=== PATIENT | female | born 1955 | race Caucasian/White ===

== ENCOUNTER → 2020-12-28 | Outpatient (CLI) | payer MEDICARE, BC | LOC: HEART 5 08:58 | DX: R00.2 Palpitations (principal); I49.8 Other specified cardiac arrhythmias ==

== ENCOUNTER → 2022-07-04 | Outpatient (CLI) | payer MEDICARE, BC | LOC: KOH-I 11:58 | DX: M25.552 Pain in left hip (principal) | CPT/HCPCS: 73502 ==